=== PATIENT | male | born 1995 | race African-American/Black ===

== ENCOUNTER 2021-12-09 17:51 | Emergency (ER) | payer SELFPAY ==
[~2021-12-09] VITALS: Ht 185.4 cm; Wt 75.3 kg
[2021-12-09 18:05] VITALS: BP 123/80
[2021-12-09] MEDS ORDERED: DOXY100T PO (18:25)
--- NOTE | 2021-12-09 18:25 | PHYS DOC ---
Past Medical History Past Medical History: No Pertinent History (INDIRA AL DO) Past Surgical History: No Surgical History (INDIRA AL DO) Drug Use: None (INDIRA AL DO) General Adult EDM: Chief Complaint: SEXUALLY TRANSMITTED DISEASE HPI: HPI: Patient is a 26 year old male patient who presents to the ED today presenting to the Ed complaining of penile irritation and stating he got exposed to trichomonas on Wednesday. (RORY DUNHAM PEWTER CASTER) Review of Systems: Review of Systems: Constitutional: Denies fever or chills. [] GI: Denies abdominal pain, nausea, vomiting, bloody stools or diarrhea. [] : Reports penile irritation and concern for STDs denies dysuria. [] Musculoskeletal: Denies back pain or joint pain. [] Integument: Denies rash. [] Neurologic: Denies headache, focal weakness or sensory changes. [] Psychiatric: Denies depression or anxiety. [] (RORY DUNHAM PEWTER CASTER) Heart Score: C/O Chest Pain: N/A Risk Factors: Risk Factors: DM, Current or recent (<one month) smoker, HTN, HLP, family history of CAD, obesity. Risk Scores: Score 0 - 3: 2.5% MACE over next 6 weeks - Discharge Home Score 4 - 6: 20.3% MACE over next 6 weeks - Admit for Clinical Observation Score 7 - 10: 72.7% MACE over next 6 weeks - Early Invasive Strategies (RORY DUNHAM PEWTER CASTER) Allergies: Allergies: Allergies Coded Allergies Type Severity Reaction Last Updated Verified No Known Drug Allergies 12/09/21 No (RORY DUNHAM PEWTER CASTER) Physical Exam: PE: Constitutional: Well developed, well nourished, no acute distress, non-toxic appearance. [] Abdomen: Bowel sounds normal, soft, no tenderness, no masses, no pulsatile masses. [] Skin: Warm, dry, no erythema, no rash. [] Back: No tenderness, no CVA tenderness. [] Extremities: No tenderness, no cyanosis, no clubbing, ROM intact, no edema. [] Neurologic: Alert and oriented X 3, normal motor function, normal sensory function, no focal deficits noted. [] Psychologic: Affect normal, judgement normal, mood normal. [] (RORY DUNHAM PEWTER CASTER) EKG: EKG: [] (RORY DUNHAM APRN) Radiology/Procedures: Radiology/Procedures: [] (RORY DUNHAM APRN) Course & Med Decision Making: Course & Med Decision Making PenilePertinent Labs and Imaging studies reviewed. (See chart for details) This is a 26-year-old male patient presented to the ED today complaining of penile irritation and states he was exposed to trichomonas. Patient was treated for trichomonas gonorrhea and chlamydia. Discharged on doxycycline. STD education provided. Follow-up with the health department (RORY DUNHAM APRN) Dragon Disclaimer: Dragon Disclaimer: This electronic medical record was generated, in whole or in part, using a voice recognition dictation system. (RORY DUNHAM APRN) Departure Departure Impression: Primary Impression: Concern about STD in male without diagnosis Disposition: HOME / SELF CARE / HOMELESS Condition: STABLE Patient Instructions: Sexually Transmitted Disease Additional Instructions: You were tested and treated for STDs. Please complete the prescribed antibiotics. Do not have intercourse for a week. Use protection at all times. Follow-up with the health department for further STD concerns. Please let all your partners know you were treated for STDs and ask them to get treated Scripts Doxycycline Hyclate (DOXYCYCLINE HYCLATE) 100 Mg Tablet 1 TAB PO BID, #14 TAB Prov: RORY DUNHAM APRN 12/09/21 Attending Signature Attending Signature I have reviewed the PA/CRUSHING FOREMAN's note and plan of care. I was available for consultation as needed during the patient's visit in the emergency department. I agree with the clinical impression, plan, and disposition. (INDIRA AL DO) RORY DUNHAM APRN December 09, 2021 18:25 INDIRA AL DO December 09, 2021 21:46
[2021-12-09] MEDS ORDERED: DOXYCYCLINE HYCLATE 100 MG TABLET PO ONE (18:30)
[2021-12-09] MEDS ORDERED: cefTRIAXone IM 500 MG VIAL. IM ONE (18:30)
[2021-12-09] MEDS ORDERED: metroNIDAZOLE 500 MG TABLET PO ONE (18:30)
[2021-12-09 19:02] LABS: AMORPHOUS SEDIMENT,UR PRESENT /HPF; BACTERIA,URINE 0 /HPF (0-FEW); RBC,URINE 0 /HPF (0-2)
== END 2021-12-09 18:40 | disposition home or self-care (01) ==
LOC: ER 17:51
DX: N48.89 Other specified disorders of penis (principal); Z20.2 Contact with and (suspected) exposure to infections with a predominantly sexual mode of transmission
CPT/HCPCS: 81001; 87491; 87591; 96372; 99283; J0696